=== PATIENT | female | born 1950 | race Caucasian/White ===

== ENCOUNTER 2021-08-21 11:59 | Outpatient (CLI) | payer MEDICARE, MEDICAID | END 2021-08-21 12:00 | disposition home or self-care (01) | LOC: CSHMRI 11:59 | PROVIDERS: ATTEND Anesthesiology Pain Medicine | DX: M54.12 Radiculopathy, cervical region (principal); M47.812 Spondylosis without myelopathy or radiculopathy, cervical region | CPT/HCPCS: 72141 ==

== ENCOUNTER 2022-04-07 09:22 | Observation (INO) | payer MEDICARE, MEDICAID ==
[2022-04-07] MEDS ORDERED: Nitroglycerin 0.4 MG TAB 1 EACH ONE (10:10)
[2022-04-07] MEDS ORDERED: Clopidogrel Bisulfate 75 MG TAB ONE (10:10)
[2022-04-07] MEDS ORDERED: Clopidogrel Bisulfate 300 MG TAB PO SCH (10:15)
[2022-04-07 10:22] LABS: #Basophils 0.1 10x3/uL (0.0-0.2); #Eosinphils 0.3 10x3/uL (0.0-0.5); #Monocytes 0.6 10x3/uL (0.0-1.1); #Neutrophils 5.4 10x3/uL (1.5-8.4); %Eosinophils 3.8 % (0.0-6.0); %Lymphocytes 25.4 % (18.0-47.0); %Monocytes 6.9 % (0.0-10.0); %Neutrophils 62.6 % (40.0-75.0); Hemoglobin 13.8 g/dL (12.0-15.5); Mean Corpuscular Volume 91.4 fl (81.6-98.3); Mean Platelet Volume 9.5 fl (7.4-10.4); Platelet Count 254 10x3/uL (150-450); RBC Distribution Width 13.1 % (11.5-14.5); Red Blood Cell (RBC) Count 4.31 10x6/uL (3.90-5.03); White Blood Cell (WBC) Count 8.6 10x3/uL (3.5-10.5)
[2022-04-07 10:34] LABS: ALT (SGPT) 20 U/L (8-55); AST (SGOT) 22 U/L (5-34); Albumin 4.5 g/dL (3.4-4.8); Alkaline Phosphatase 80 U/L (40-110); Anion Gap 17 mmol/L (10-20); BUN (Urea Nitrogen) 8 mg/dL (9.8-20.1); Bilirubin, Total 0.5 mg/dL (0.2-1.2); Calc. Creatinine Clearance 0 mL/min (70-130); Calcium 9.4 mg/dL (7.8-10.44); Carbon Dioxide 21 mmol/L (23-31); Chloride 102 mmol/L (98-107); Estimated GFR 86; Globulin 2.9 g/dL (2.4-3.5); Glucose 144 mg/dL (83-110); Lipase 19 U/L (8-78); Protein, Total 7.4 g/dL (5.8-8.1); Sodium 136 mmol/L (136-145)
[2022-04-07] MEDS ORDERED: Acetaminophen 650 MG Suppository PR PRN (12:23)
[2022-04-07] MEDS ORDERED: Ondansetron PF 4 MG/2 ML Vial IVP PRN (12:23)
[2022-04-07] MEDS ORDERED: Ondansetron ODT 4 MG TAB PO PRN (12:23)
[2022-04-07] MEDS ORDERED: Acetaminophen 325 MG TAB PO PRN (12:23)
[2022-04-07 12:50] LABS: SARS-CoV-2 NAA Rapid Test Not Detected (NotDetected)
[2022-04-07 13:38] LABS: Troponin I Less than 0.010 ng/mL (< 0.028)
[2022-04-07 15:47] VITALS: BMI 34.7
[2022-04-07 15:54] LABS: Troponin I Less than 0.010 ng/mL (< 0.028)
[2022-04-07] MEDS ORDERED: Famotidine 20 MG TAB PO SCH (21:00)
[2022-04-07] MEDS ORDERED: Cyclobenzaprine 10 MG TAB PO PRN ×2 (21:33→22:35)
[2022-04-07] MEDS ORDERED: Amlodipine 10 MG TAB PO SCH (21:45)
[2022-04-07] MEDS ORDERED: Furosemide 20 MG TAB PO PRN (22:35)
[2022-04-08 06:08] LABS: #Basophils 0.1 10x3/uL (0.0-0.2); #Eosinphils 0.3 10x3/uL (0.0-0.5); #Monocytes 0.6 10x3/uL (0.0-1.1); #Neutrophils 3.2 10x3/uL (1.5-8.4); %Basophils 1.1 % (0.0-2.0); %Lymphocytes 36.1 % (18.0-47.0); %Monocytes 8.6 % (0.0-10.0); %Neutrophils 49.7 % (40.0-75.0); Hemoglobin 13.9 g/dL (12.0-15.5); Mean Corpuscular HGB CONC 34.7 g/dL (32.0-36.0); Mean Corpuscular Hemoglobin 32.1 pg (27.0-33.0); Mean Corpuscular Volume 92.6 fl (81.6-98.3); Mean Platelet Volume 9.4 fl (7.4-10.4); Platelet Count 262 10x3/uL (150-450); Red Blood Cell (RBC) Count 4.33 10x6/uL (3.90-5.03); White Blood Cell (WBC) Count 6.4 10x3/uL (3.5-10.5)
[2022-04-08 06:29] LABS: Anion Gap 16 mmol/L (10-20); BUN (Urea Nitrogen) 8 mg/dL (9.8-20.1); Calc. Creatinine Clearance 96 mL/min (70-130); Calcium 9.5 mg/dL (7.8-10.44); Carbon Dioxide 25 mmol/L (23-31); Cardiac Risk 4.3 (Less than 4.5); Chloride 105 mmol/L (98-107); Cholesterol 142 mg/dl (< 200 Desired); Estimated GFR 89; Glucose 107 mg/dL (83-110); HDL Cholesterol 33 mg/dL (>60 Neg Risk); LDL Cholesterol, Calculated 65 mg/dL; Potassium 3.5 mmol/L (3.5-5.1); Sodium 142 mmol/L (136-145); Triglycerides 222 mg/dL (Less than 150)
[2022-04-08] MEDS ORDERED: Potassium Chloride 20 MEQ TAB PO SCH (09:00)
[2022-04-08] MEDS ORDERED: Atenolol 25 MG TAB PO SCH (09:00)
[2022-04-08] MEDS ORDERED: Losartan Potassium 50 MG TAB PO SCH ×2 (09:00→21:00)
[2022-04-08] MEDS ORDERED: cloNIDine 0.1 MG TAB PO SCH (09:00)
[2022-04-08 10:14] LABS: Magnesium 1.9 mg/dL (1.6-2.6)
[2022-04-08 13:05] VITALS: BP 135/82; TEMP 98
[2022-04-08 14:58] LABS: Hemoglobin A1c 6.6 % (4.0-6.0)
[2022-04-08] MEDS ORDERED: Amlodipine 10 MG TAB PO SCH ×2 (21:00)
[2022-04-08] MEDS ORDERED: Atorvastatin Calcium 40 MG TAB PO SCH (21:00)
== END 2022-04-08 16:09 | disposition home or self-care (01) ==
LOC: CSHERS 09:22 → CSHERHOLD 12:44 → INTOOBSV 12:44 → CSHTELE 14:55
PROVIDERS: ADMIT Family Medicine; ATTEND Internal Medicine
DX: R07.89 Other chest pain (principal); I10 Essential (primary) hypertension; E78.5 Hyperlipidemia, unspecified; J45.909 Unspecified asthma, uncomplicated; E11.9 Type 2 diabetes mellitus without complications; K21.9 Gastro-esophageal reflux disease without esophagitis; E66.9 Obesity, unspecified; M79.2 Neuralgia and neuritis, unspecified; Z20.822 Contact with and (suspected) exposure to COVID-19; Z79.899 Other long term (current) drug therapy; Z88.1 Allergy status to other antibiotic agents; Z88.8 Allergy status to other drugs, medicaments and biological substances; Z68.34 Body mass index [BMI] 34.0-34.9, adult
CPT/HCPCS: 71045; 80048; 80053; 80061; 82306; 83036; 83690; 83735; 83880; 84484 ×2; 85025 ×2; 93005; 94760; 99285; G0378 ×3; U0002; 36415

== ENCOUNTER 2022-04-25 00:34 | Emergency (ER) | payer MEDICARE, MEDICAID ==
[2022-04-25 01:30] LABS: #Basophils 0.1 10x3/uL (0.0-0.2); #Eosinphils 0.4 10x3/uL (0.0-0.5); #Monocytes 0.5 10x3/uL (0.0-1.1); %Basophils 0.9 % (0.0-2.0); %Eosinophils 4.5 % (0.0-6.0); %Lymphocytes 23.6 % (18.0-47.0); %Monocytes 6.4 % (0.0-10.0); %Neutrophils 64.1 % (40.0-75.0); Hemoglobin 14.4 g/dL (12.0-15.5); Mean Corpuscular HGB CONC 33.8 g/dL (32.0-36.0); Mean Corpuscular Hemoglobin 31.5 pg (27.0-33.0); Mean Corpuscular Volume 93.2 fl (81.6-98.3); Mean Platelet Volume 9.2 fl (7.4-10.4); Platelet Count 298 10x3/uL (150-450); RBC Distribution Width 13.1 % (11.5-14.5); Red Blood Cell (RBC) Count 4.57 10x6/uL (3.90-5.03); White Blood Cell (WBC) Count 7.8 10x3/uL (3.5-10.5)
[2022-04-25 01:40] LABS: ALT (SGPT) 18 U/L (8-55); AST (SGOT) 18 U/L (5-34); Albumin 4.7 g/dL (3.4-4.8); Alkaline Phosphatase 75 U/L (40-110); Anion Gap 15 mmol/L (10-20); BUN (Urea Nitrogen) 14 mg/dL (9.8-20.1); Bilirubin, Total 0.4 mg/dL (0.2-1.2); Calc. Creatinine Clearance 0 mL/min (70-130); Calcium 9.6 mg/dL (7.8-10.44); Carbon Dioxide 22 mmol/L (23-31); Chloride 108 mmol/L (98-107); Estimated GFR 82; Globulin 2.6 g/dL (2.4-3.5); Glucose 154 mg/dL (83-110); Potassium 3.9 mmol/L (3.5-5.1); Protein, Total 7.3 g/dL (5.8-8.1); Sodium 141 mmol/L (136-145)
== END 2022-04-25 03:13 | disposition home or self-care (01) ==
LOC: CSHERS 00:34
DX: R00.2 Palpitations (principal); T48.1X5A Adverse effect of skeletal muscle relaxants [neuromuscular blocking agents], initial encounter; E11.9 Type 2 diabetes mellitus without complications; I10 Essential (primary) hypertension; K21.9 Gastro-esophageal reflux disease without esophagitis; E78.5 Hyperlipidemia, unspecified; J45.909 Unspecified asthma, uncomplicated; Z79.899 Other long term (current) drug therapy
CPT/HCPCS: 71045; 80053; 84484; 85025; 93005

== ENCOUNTER 2022-12-04 19:59 | Emergency (ER) | payer MEDICAID, MEDICARE ==
[2022-12-04] MEDS ORDERED: Loratadine 10 MG TAB PO SCH (21:00)
[2022-12-04] MEDS ORDERED: Acetaminophen 500 MG TAB ONE (21:21)
[2022-12-04] MEDS ORDERED: Amoxicillin/Potassium Clav 875 MG TAB ONE (22:55)
== END 2022-12-04 22:56 | disposition home or self-care (01) ==
LOC: CSHERS 19:59
DX: H65.92 Unspecified nonsuppurative otitis media, left ear (principal); R51.9 Headache, unspecified; E11.9 Type 2 diabetes mellitus without complications; I10 Essential (primary) hypertension
CPT/HCPCS: 93005

== ENCOUNTER 2023-02-07 04:16 | Emergency (ER) | payer MEDICARE ==
[2023-02-07 05:05] LABS: #Basophils 0.1 10x3/uL (0.0-0.2); #Eosinphils 0.3 10x3/uL (0.0-0.5); #Monocytes 0.7 10x3/uL (0.0-1.1); #Neutrophils 4.8 10x3/uL (1.5-8.4); %Eosinophils 3.9 % (0.0-6.0); %Lymphocytes 25.3 % (18.0-47.0); %Monocytes 9.1 % (0.0-10.0); %Neutrophils 60.1 % (40.0-75.0); Hematocrit 41.2 % (34.9-44.5); Hemoglobin 13.8 g/dL (12.0-15.5); Mean Corpuscular HGB CONC 33.5 g/dL (32.0-36.0); Mean Corpuscular Hemoglobin 30.9 pg (27.0-33.0); Mean Corpuscular Volume 92.4 fl (81.6-98.3); Mean Platelet Volume 9.1 fl (7.4-10.4); Platelet Count 302 10x3/uL (150-450); RBC Distribution Width 13.1 % (11.5-14.5); Red Blood Cell (RBC) Count 4.46 10x6/uL (3.90-5.03); White Blood Cell (WBC) Count 7.9 10x3/uL (3.5-10.5)
[2023-02-07 05:20] LABS: ALT (SGPT) 16 U/L (8-55); AST (SGOT) 16 U/L (5-34); Albumin 4.4 g/dL (3.4-4.8); Alkaline Phosphatase 87 U/L (40-110); Anion Gap 16 mmol/L (10-20); BUN (Urea Nitrogen) 11 mg/dL (9.8-20.1); Bilirubin, Total 0.4 mg/dL (0.2-1.2); Calc. Creatinine Clearance 0 mL/min (70-130); Calcium 9.9 mg/dL (7.8-10.44); Carbon Dioxide 24 mmol/L (23-31); Chloride 102 mmol/L (98-107); Estimated GFR 83; Glucose 160 mg/dL (83-110); Potassium 4.2 mmol/L (3.5-5.1); Protein, Total 7.4 g/dL (5.8-8.1); Sodium 138 mmol/L (136-145)
[2023-02-07 05:23] LABS: Troponin I Less than 0.010 ng/mL (< 0.028)
[2023-02-07 05:32] LABS: SARS-CoV-2 NAA Rapid Test Not Detected (NotDetected)
== END 2023-02-07 05:40 | disposition home or self-care (01) ==
LOC: CSHERS 04:16
DX: I10 Essential (primary) hypertension (principal); Z20.822 Contact with and (suspected) exposure to COVID-19; E11.9 Type 2 diabetes mellitus without complications; K21.9 Gastro-esophageal reflux disease without esophagitis; E78.5 Hyperlipidemia, unspecified; Z79.899 Other long term (current) drug therapy
CPT/HCPCS: 0240U; 71045; 80053; 84484; 85025; 93005; 99284; 36415